=== PATIENT | female | born 1985 | race Two or more races ===

== ENCOUNTER 2017-06-18 09:10 | Day surgery (SDC) | payer OTHER ==
[~2017-06-18 09:10] MED LIST: Buffered Lidocaine 0.9% SYRIN* 5 ML/SYR SYRINGE INTRADERM ONE; Metoclopramide TAB* 10 MG PO ONE
[2017-06-18 09:31] LABS: Manual Entry Verification JEA0012; UR Preg Internal Control QC Line Present
[2017-06-18] MEDS ORDERED: Buffered Lidocaine 0.9% SYRIN* 5 ML/SYR SYRINGE ONE (09:31)
[2017-06-18] MEDS ORDERED: Metoclopramide TAB* 10 MG ONE (09:31)
[2017-06-18] MEDS ORDERED: Oxymetazoline 0.05% NASAL SPR* 15 ML BTL ONE (10:26)
[2017-06-18] MEDS ORDERED: Lidocaine 2% EPI 1:200000 MPF* 20 ML VIAL ONE (10:27)
[2017-06-18] MEDS ORDERED: fentaNYL* 50 MCG/ML 2 ML VIAL (100 MCG VIAL) ONE (10:55)
[2017-06-18] MEDS ORDERED: Scopolamine 1.5 mg* PATCH ONE (11:02)
[2017-06-18] MEDS ORDERED: Lidocaine 2% PF * 5 ML VIAL ONE (11:02)
[2017-06-18] MEDS ORDERED: Ondansetron INJ* 2 MG/ML VIAL ONE (11:02)
[2017-06-18] MEDS ORDERED: Propofol* 10 MG/ML 20 ML BTL IV PUSH ONE (11:02)
[2017-06-18] MEDS ORDERED: Dexamethasone IV* 4 MG/ML 1 ML (4 MG) ONE (11:02)
[2017-06-18] MEDS ORDERED: fentaNYL* 50 MCG/ML 2 ML VIAL (100 MCG VIAL) IV PRN (11:16)
[2017-06-18] MEDS ORDERED: DiMENhydriNATE IV* 50 MG/ML VIAL IV PUSH PRN (11:16)
[2017-06-18] MEDS ORDERED: Ketorolac INJ* 30 MG/ML 1 ML VIAL IV PRN (11:16)
[2017-06-18] MEDS ORDERED: oxyCODONE/Acetamin 5/325 MG* TAB PO PRN (11:16)
[2017-06-18] MEDS ORDERED: oxyCODONE/Acetamin 5/325 MG* TAB ONE (11:54)
[2017-06-18] MEDS ORDERED: Ketorolac INJ* 30 MG/ML 1 ML VIAL ONE (11:54)
[2017-06-18 12:48] VITALS: BP 98/77
--- NOTE | 2017-06-19 06:57 | OP ---
DATE OF OPERATION: 06/18/17 - [facility] DATE OF : 87 SURGEON: Miki Mosley M.D. ANESTHESIOLOGIST: Tommy Rollins MD ANESTHESIA: General PRE-OP DIAGNOSIS: Deviated nasal septum, hypertrophied turbinates, and nasal dyspnea. POST-OP DIAGNOSIS: Deviated nasal septum, hypertrophied turbinates, and nasal dyspnea. OPERATIVE PROCEDURE: Septoplasty and submucosal resection of bilateral inferior turbinates. BRIEF HISTORY: This is a 31-year-old with nasal dyspnea and noted to have a deviated septum with some hypertrophy of the turbinates, elected for surgical therapy after having failed medical therapy including nasal steroids. DESCRIPTION OF PROCEDURE: The patient was taken to the operating room. General anesthetic given. The patient was intubated with LMA. Nose was decongested with Afrin placed pledgets. 2% lidocaine with epinephrine was infiltrated into the submucosal tissue for anesthesia and hemostasis. Left hemitransfixion incision created, mucoperichondrial flap was elevated, quadrangular cartilage was disarticulated along the vomer-ethmoidal complex. A large portion of the deviated septum posteriorly along the vomer-ethmoidal complex was removed. Septal spur was noted along the maxillary crest. This was resected out. The cartilage was then scored on its concave surface multiple times to straighten as best as possible. Quadrangular cartilage was then replaced in the midline, sutured in place with multiple mattress sutures of chromic. The hemitransfixion incision was closed. Next, we put some Deepti splints in, which was secured by 2.0 silk. We then turned our attention to the inferior turbinates. An inferior turbinate mucosal incision was created. Small amounts of submucosal tissue was removed including portions of the bone. Hemostasis was obtained using cautery. Once this was done, the nose was dressed. The patient was then awakened and sent to recovery room in stable condition. Instrument and sponge counts correct. Blood loss minimal. [id number]/[facility] #: [id number] MTDD
== END 2017-06-18 12:49 | disposition home or self-care (01) ==
LOC: OR 09:10
PROVIDERS: ATTEND Otolaryngology
DX: J34.2 Deviated nasal septum (principal); J34.3 Hypertrophy of nasal turbinates; R06.00 Dyspnea, unspecified; J31.0 Chronic rhinitis; F32.9 Major depressive disorder, single episode, unspecified; F41.9 Anxiety disorder, unspecified; Z88.8 Allergy status to other drugs, medicaments and biological substances; Z72.0 Tobacco use
CPT/HCPCS: 81025; A9270-GY; J1100; J1885; J2405; J2704; J3010